=== PATIENT | male | born 1975 | race Caucasian/White ===

== ENCOUNTER 2017-01-12 22:26 | Observation (INO) | payer MEDICAID ==
[2017-01-12] MEDS ORDERED: SODIUM CHLORIDE 0.9% 1,000 ML IV STA (22:43)
[2017-01-12] MEDS ORDERED: RX INFO: IV CONTRAST WAS GIVEN 1 EACH MISC MISCELLANE PRN (22:57)
[2017-01-12] MEDS ORDERED: ACETAMINOPHEN IV (For NPO) 1,000 MG in EMPTY BAG 1 BAG IVPB STA (23:00)
--- NOTE | 2017-01-12 23:03 | ED ---
Abdominal Pain HPI - General Chief Complaint: Abdominal Pain Stated Complaint: lower abdominal pain Time Seen by Provider: 01/12/17 22:43 Source: patient, RN notes reviewed Mode of arrival: ambulatory Limitations: no limitations - History of Present Illness Initial Comments: 41-year-old male presents emergency Department with chief complaint of right lower quadrant abdominal pain. Patient states started earlier this afternoon and has worsened. Patient states that movement does make it worse. Patient states that initially started as mid to lower abdomen but denies localized right lower quadrant. Patient denies any dysuria, hematuria. Patient states she just does not feel well 71 nauseated no vomiting no diarrhea no constipation. Patient had no prior abdominal surgeries. Patient has not taken any Tylenol or Motrin. Patient states that he has a benign past medical history. Patient has felt warm and flushed since being at work. - Related Data Home Medications Medication Instructions Recorded Confirmed D-Methorphan/Acetamin/Doxylamn 30 ml PO Q6H PRN 01/12/17 01/12/17 [Vicks Nyquil Cold & Flu Liquid] Lisinopril [Zestril] 20 mg PO DAILY 01/12/17 01/12/17 Ranitidine HCl 150 mg PO DAILY 01/12/17 01/12/17 Allergies Allergy/AdvReac Type Severity Reaction Status Date / Time No Known Allergies Allergy Verified 01/12/17 23:27 Review of Systems ROS Statement: Those systems with pertinent positive or pertinent negative responses have been documented in the HPI. ROS Other: All systems not noted in ROS Statement are negative. Past Medical History Past Medical History: GERD/Reflux, Hypertension History of Any Multi-Drug Resistant Organisms: None Reported Additional Past Surgical History / Comment(s): wrist surgery, Past Psychological History: No Psychological Hx Reported Smoking Status: Never smoker Past Alcohol Use History: Occasional Past Drug Use History: None Reported General Exam Limitations: no limitations General appearance: alert, in no apparent distress Respiratory exam: Present: normal lung sounds bilaterally. Absent: respiratory distress, wheezes, rales, rhonchi, stridor Cardiovascular Exam: Present: normal rhythm, tachycardia, normal heart sounds. Absent: systolic murmur, diastolic murmur, rubs, gallop, clicks GI/Abdominal exam: Present: soft, tenderness (Moderate right lower quadrant tenderness), normal bowel sounds. Absent: distended, guarding, rebound, rigid Back exam: Absent: CVA tenderness (R), CVA tenderness (L) Neurological exam: Present: alert, oriented X3, CN II-XII intact Skin exam: Present: warm, dry, intact, normal color. Absent: rash Course Vital Signs 01/12/17 01/12/17 01/13/17 22:38 23:01 00:13 Temperature 98.8 F 100.1 F H 98.5 F Pulse Rate 138 H 118 H Respiratory 18 16 Rate Blood Pressure 156/91 134/92 O2 Sat by Pulse 98 99 Oximetry Medical Decision Making - Medical Decision Making Case discussed with Dr. Kurtz. Patient be admitted at this time for acute appendicitis patient be kept nothing by mouth for surgery in the morning - Lab Data Result diagrams: 01/12/17 22:55 01/12/17 22:55 Lab Results 01/12/17 01/12/17 01/12/17 Range/Units 22:55 22:55 23:54 WBC 13.5 H (3.8-10.6) k/uL RBC 5.73 (4.30-5.90) m/uL Hgb 17.1 (13.0-17.5) gm/dL Hct 48.3 (39.0-53.0) % MCV 84.3 (80.0-100.0) fL MCH 29.9 (25.0-35.0) pg MCHC 35.4 (31.0-37.0) g/dL RDW 13.3 (11.5-15.5) % Plt Count 250 (150-450) k/uL Neutrophils % 73 % Lymphocytes % 18 % Monocytes % 5 % Eosinophils % 2 % Basophils % 0 % Neutrophils # 9.9 H (1.3-7.7) k/uL Lymphocytes # 2.4 (1.0-4.8) k/uL Monocytes # 0.6 (0-1.0) k/uL Eosinophils # 0.3 (0-0.7) k/uL Basophils # 0.1 (0-0.2) k/uL Sodium 141 (137-145) mmol/L Potassium 4.0 (3.5-5.1) mmol/L Chloride 102 (98-107) mmol/L Carbon Dioxide 24 (22-30) mmol/L Anion Gap 15 mmol/L BUN 16 (9-20) mg/dL Creatinine 0.93 (0.66-1.25) mg/dL Est GFR (MDRD) Af Amer >60 (>60 ml/min/1.73 sqM) Est GFR (MDRD) Non-Af >60 (>60 ml/min/1.73 sqM) Glucose 124 H (74-99) mg/dL Calcium 9.8 (8.4-10.2) mg/dL Total Bilirubin 1.7 H (0.2-1.3) mg/dL AST 42 (17-59) U/L ALT 74 H (21-72) U/L Alkaline Phosphatase 70 (38-126) U/L Total Protein 8.0 (6.3-8.2) g/dL Albumin 4.7 (3.5-5.0) g/dL Amylase 48 (30-110) U/L Lipase 145 (23-300) U/L Urine Color Light Yellow Urine Appearance Clear (Clear) Urine pH 7.5 (5.0-8.0) Ur Specific [place] 1.050 H (1.001-1.035) Urine Protein Negative (Negative) Urine Glucose (UA) Negative (Negative) Urine Ketones Negative (Negative) Urine Blood Negative (Negative) Urine Nitrite Negative (Negative) Urine Bilirubin Negative (Negative) Urine Urobilinogen 2.0 (<2.0) mg/dL Ur Leukocyte Esterase Negative (Negative) Disposition Clinical Impression: Acute appendicitis Disposition: ADMITTED IP TO THIS [facility] Condition: Good
[2017-01-12 23:09] LABS: Basophils # (A) 0.1 k/uL (0-0.2); Basophils % (A) 0 %; CH 30.4; CHCM 36.2; Eosinophils # (A) 0.3 k/uL (0-0.7); Eosinophils % (A) 2 %; HCT 48.3 % (39.0-53.0); HDW 2.97; HGB 17.1 gm/dL (13.0-17.5); Luc # (Auto) 0.26; Luc % (Auto) 2; Lymphocytes # (A) 2.4 k/uL (1.0-4.8); Lymphocytes % (A) 18 %; MCH 29.9 pg (25.0-35.0); MCHC 35.4 g/dL (31.0-37.0); MCV 84.3 fL (80.0-100.0); Mean Platelet Volume 7.7; Monocytes # (A) 0.6 k/uL (0-1.0); Monocytes % (A) 5 %; Neutrophils # (A) 9.9 k/uL (1.3-7.7); Neutrophils % (A) 73 %; RBC 5.73 m/uL (4.30-5.90); RDW 13.3 % (11.5-15.5); WBC 13.5 k/uL (3.8-10.6); WBC (Perox) 14.07
[2017-01-12 23:22] LABS: ALT 74 U/L (21-72); AST 42 U/L (17-59); Alkaline Phosphatase 70 U/L (38-126); Amylase 48 U/L (30-110); Anion Gap 15 mmol/L; Blood Urea Nitrogen 16 mg/dL (9-20); Calcium 9.8 mg/dL (8.4-10.2); Carbon Dioxide 24 mmol/L (22-30); Chloride 102 mmol/L (98-107); Glucose 124 mg/dL (74-99); Non-African American GFR(MDRD) >60 (>60 ml/min/1.73 sqM); Sodium 141 mmol/L (137-145); Total Bilirubin 1.7 mg/dL (0.2-1.3)
--- NOTE | 2017-01-13 | CT ---
EXAM: CT Abdomen and Pelvis With Intravenous Contrast. CLINICAL HISTORY: Reason: RLQ pain TECHNIQUE: Axial computed tomography images of the abdomen and pelvis with intravenous contrast. CTDI is 11 mGy and DLP is 974 mGy-cm COMPARISON: No relevant prior studies available. FINDINGS: The lung bases are clear. The liver, biliary tree, pancreas, spleen, kidneys, and adrenal glands are within normal limits. There is no bowel obstruction or perforation. The appendix is mildly dilated, 8 mm in maximal diameter. There is suggestion of adjacent edema (series 3, image 65). In this clinical setting, would suspect early changes of appendicitis. No abscess or free air. No fracture. IMPRESSION: Findings suspicious for early appendicitis. No free air or abscess.
[2017-01-13] MEDS ORDERED: PIPERACILLIN-TAZOBACTAM 3.375 GM in DEXTROSE/WATER 1 50ML.BAG IVPB STA (00:05)
[2017-01-13 00:16] LABS: Appearance,Urine Clear (Clear); Bilirubin,Urine Negative (Negative); Glucose,Urine (UA) Negative (Negative); Ketones,Urine Negative (Negative); Leukocyte Esterase,Urine Negative (Negative); Nitrite,Urine Negative (Negative); PH, Urine 7.5 (5.0-8.0); Protein,Urine Negative (Negative); UA Billing (MACRO vs. MICRO) CHEM
[2017-01-13] MEDS ORDERED: NALOXONE 0.4 MG/ML 1 ML VIAL IV PRN (00:53)
[2017-01-13] MEDS ORDERED: ONDANSETRON 4 MG/2 ML VIAL IVP PRN (00:53)
[2017-01-13] MEDS ORDERED: ACETAMINOPHEN IV (For NPO) 1,000 MG in EMPTY BAG 1 BAG IVPB PRN (00:55)
[2017-01-13] MEDS: SODIUM CHLORIDE 0.9% 1,000 ML IV SCH ×2 (00:58→17:01)
[2017-01-13 01:59] VITALS: BMI 28.0
[2017-01-13] MEDS ORDERED: ACETAMINOPHEN IV (For NPO) 1,000 MG in EMPTY BAG 1 BAG IVPB SCH (06:00)
[2017-01-13] MEDS ORDERED: HEPARIN SODIUM,PORCINE 5,000 UNIT/ML 1 ML VIAL SQ ONE (07:44)
--- NOTE | 2017-01-13 10:14 | P.GSHP ---
History of Present Illness H&P Date: 01/13/17 CHIEF COMPLAINT: Right lower quadrant abdominal pain with appendicitis over 1 day. HISTORY OF PRESENT ILLNESS: The patient is a previously healthy 41-year-old male who presents with 1.5 day history of periumbilical with right lower quadrant abdominal pain that started last night. No reports diarrhea but he had anorexia. No reports of prior abdominal pain. He states the intensity of the pain is moderate to severe. He presented with over 10,[address] abdomen and pelvis consistent with dilated appendix suspicious for appendicitis hence admission. PAST MEDICAL HISTORY: See list. PAST SURGICAL HISTORY: See list. CURRENT MEDICATIONS: See list. ALLERGIES: None. SOCIAL HISTORY: No illicit drug use. FAMILY HISTORY: Denies Crohns disease and ulcerative colitis. REVIEW OF ORGAN SYSTEMS: CONSTITUTIONAL: Denies any fever or chills. Denies recent weight loss. HEENT: Denies any trouble with vision, hearing or nosebleeds. No difficulty swallowing. LYMPHATIC: The patient denies any lumps and bumps around the neck. ENDOCRINE: Denies any thyroid disorders. Denies any blood sugar glucose intolerance. RESPIRATORY: Denies shortness of breath including chronic cough. CARDIOVASCULAR: Denies history of chest pain with exertion. GASTROINTESTINAL: Has GERD. GENITOURINARY: Denies any blood in urine or increased urinary frequency. MUSCULOSKELETAL: Denies current joint arthritis. NEUROLOGIC: Denies any numbness or tingling along the distal extremities. No seizure disorders or headaches. PSYCHIATRIC: Denies any depression or suicidal ideation. HEMATOLOGIC: Denies any abnormal bleeding or bruising. GENERAL MEDICAL CARE: The patient sees primary care physician regularly. PHYSICAL EXAMINATION: Vital signs: Vital Signs Temp 98.0 F 01/13/17 07:43 Pulse 83 01/13/17 07:43 Resp 16 01/13/17 07:43 BP 122/74 01/13/17 07:43 Pulse Ox 98 01/13/17 07:43 Intake & Output 01/12/17 01/13/17 01/13/17 18:59 06:59 18:59 Intake Total 465 Balance 465 Weight 86.183 kg Intake: Intake, IV Titration 465 Amount Piperacillin-Tazobactam 3 50 .375 gm In Dextrose/Water 1 50ml.bag @ 12.5 mls/hr IVPB ONCE STA Rx#: [id number] Sodium Chloride 0.9% 1, 415 000 ml @ 75 mls/hr IV . [id number] [facility] Rx#:[id number] Other: Voiding Method Toilet GENERAL: Well developed and in no acute distress. Pleasant. HEENT: No sclera icterus. Extraocular movements grossly intact. Moist buccal mucosa. Head is atraumatic, normocephalic. Hears conversational speech. No nasal drainage. NECK: Supple without lymphadenopathy. No JV distention. CHEST: Non-labored respirations and equal bilateral excursions. CARDIOVASCULAR: Regular rate and rhythm. Palpable 2+ radial pulses. ABDOMEN: Soft, tender at the right lower quadrant. No peritonitis. MUSCULOSKELETAL: No clubbing, cyanosis or edema. NEUROLOGIC: No focal or lateralizing signs. PSYCH: Appropriate affect. Alert and oriented to person, place and time. STUDIES: CT of the abdomen and pelvis reviewed with findings consistent with appendicitis. ASSESSMENT: 1. Right lower quadrant pain. 2. Appendicitis. 3. Leukocytosis. PLAN: 1. I have discussed benefits and risks of laparoscopic appendectomy possible open. 2. Off work restrictions and recovery anticipated for 1 to 2 weeks. 3. Antibiotics, pre-op. 4. DVT prophylaxis with heparin. 5. GI prophylaxis. 6. Thank you very much for allowing me to participate in the care of your patient. Past Medical History Past Medical History: GERD/Reflux, Hyperlipidemia, Hypertension, Sleep Apnea/ CPAP/BIPAP Additional Past Medical History / Comment(s): No C=-pap, Insomnia History of Any Multi-Drug Resistant Organisms: None Reported Additional Past Surgical History / Comment(s): wrist surgery, Past Anesthesia/Blood Transfusion Reactions: No Reported Reaction Past Psychological History: No Psychological Hx Reported Smoking Status: Never smoker Past Alcohol Use History: Occasional Past Drug Use History: None Reported - Past Family History Mother Family Medical History: Chest Pain / Angina, Hypertension, Myocardial Infarction (CT) Father Family Medical History: Deep Vein Thrombosis (DVT) Medications and Allergies Home Medications Medication Instructions Recorded Confirmed Type D-Methorphan/Acetamin/Doxylamn 30 ml PO Q6H PRN 01/12/17 01/12/17 History [Vicks Nyquil Cold & Flu Liquid] Lisinopril [Zestril] 20 mg PO DAILY 01/12/17 01/12/17 History Ranitidine HCl 150 mg PO DAILY 01/12/17 01/12/17 History Allergies Allergy/AdvReac Type Severity Reaction Status Date / Time No Known Allergies Allergy Verified 01/12/17 23:27 Surgical - Exam Vital Signs Temp Pulse Resp BP Pulse Ox 98.8 F 138 H 18 156/91 98 01/12/17 22:38 01/12/17 22:38 01/12/17 22:38 01/12/17 22:38 01/12/17 22:38 Results - Labs 01/12/17 22:55 01/12/17 22:55
[2017-01-13] MEDS ORDERED: IV FLUID CONTINUATION 1,000 ML IV ONE (13:42)
[2017-01-13] MEDS ORDERED: DEXAMETHASONE SOD PHOS (MDV) 100 MG/10 ML VIAL IV ONE (14:01)
[2017-01-13] MEDS ORDERED: MIDAZOLAM 2 MG/2 ML VIAL ONE (14:36)
[2017-01-13] MEDS ORDERED: GLYCOPYRROLATE 0.2 MG/ML 2 ML VIAL ONE (14:36)
[2017-01-13] MEDS ORDERED: ROCURONIUM BROMIDE 10 MG/ML 10 ML VIAL IV ONE (14:36)
[2017-01-13] MEDS ORDERED: fentaNYL (PF) 50 MCG/ML 2 ML AMP ONE (14:36)
[2017-01-13] MEDS ORDERED: PROPOFOL 10 MG/ML 20 ML VIAL IV ONE (14:36)
[2017-01-13] MEDS ORDERED: NEOSTIGMINE 1 MG/ML 10 ML VIAL ONE (14:36)
[2017-01-13] MEDS ORDERED: LACTATED RINGERS 1,000 ML IV ONE (14:58)
[2017-01-13] MEDS ORDERED: BUPIVACAIN-EPI 0.25%-1:200,000 30 ML VIAL SQ ONE (14:58)
[2017-01-13] MEDS ORDERED: ACETAMINOPHEN IV (For NPO) 1,000 MG in EMPTY BAG 1 BAG IVPB ONE (15:35)
--- NOTE | 2017-01-13 15:35 | P.OP ---
Date of Procedure: 01/13/17 Description of Procedure: SURGEON: LIVE CARDENAS MD GLOBAL LOGISTICS ANALYST: None. PREOPERATIVE DIAGNOSES: 1. Right lower quadrant abdominal pain. 2. Acute appendicitis. 3. Leukocytosis. 4. Gastroesophageal reflux disease. POSTOPERATIVE DIAGNOSES: 1. Right lower quadrant abdominal pain. 2. Acute appendicitis. 3. Leukocytosis. 4. Gastroesophageal reflux disease. PROCEDURES PERFORMED: 1. Diagnostic laparoscopy. 2. Laparoscopic appendectomy. ANESTHESIA: General with 30 mL 0.25% Marcaine with epinephrine. ESTIMATED BLOOD LOSS: 5 mL. SPECIMENS REMOVED: Appendix. COMPLICATIONS: None. OPERATIVE FINDINGS: 1. Acute appendicitis with dilation of the appendix without perforation. 2. Unremarkable small bowel and terminal ileum. 3. Liver unremarkable. 4. The colon was unremarkable 5. No evidence of inguinal hernia. INDICATIONS: The patient is a 41-year-old male who presents with over 24-hour history of right lower quadrant abdominal pain. He reported nausea, including anorexia. CT of the abdomen and pelvis was obtained demonstrating findings consistent with acute appendicitis. Benefits and risks, including possibility of open technique were described at length. Informed consent was obtained. DESCRIPTION OR PROCEDURE: Patient was brought to the operating room, laid in supine position. After general induction, the abdomen was prepped and draped in standard sterile fashion. Prior to incision, a timeout protocol was confirmed with surgical team regarding patient's name including procedure to be performed. Preoperative medications were given intraoperatively. Additionally, bilateral SCDs including heparin 5000 units was administered. A transverse infraumbilical incision was made after localizing the skin with anesthetic. A 0 degree 12 mm laparoscopic trocar entry was performed and entered into the peritoneal cavity. The abdomen was insufflated to 15 mmHg of pressure, which he tolerated well. Diagnostic laparoscopy demonstrated no injury to bowel, viscera or mesentery. A 5 mm port was placed at the left upper quadrant all under direct visualization. Two separate 5-mm trocars were placed one along the suprapubic area and another along the right lower quadrant. The patient was placed in Trendelenburg position with the right side up. A systematic view within the abdominal cavity was started with the small bowel which was unremarkable. The gallbladder was unremarkable. The base of the cecum was without inflammation. The entire appendix was dilated consistent with acute appendicitis. A 60 mm Endo UCHE echelon stapler was fired across using a mukherjee vascular load. Upon careful inspection, a small appendiceal stump was identified and also resected. Mild arterial bleed was encountered and controlled with irrigation. Irrigation of 100 mL was used into the abdomen and aspirated. The specimen was removed from the abdominal cavity with a Endo Catch bag through the 12 mm trocar. All instruments and pneumoperitoneum were evacuated from the abdominal cavity. The fascial defect was less than 8 mm. A total of 30 mL 0.25% Marcaine with epinephrine was infiltrated in all wounds for postop analgesia. Dermabond was applied to the skin after reapproximating the incisions with 4-0 Monocryl as described. At the end of the procedure, needle, sponge, and instrument count was verified correct by coroner forensic technician. The patient had tolerated the procedure well, was taken to the postanesthesia care unit in stable condition.
[2017-01-13 15:49] VITALS: RESP 16
[2017-01-13] MEDS: KETOROLAC 30 MG/ML 1 ML VIAL IVP SCH (15:56)
[2017-01-13] MEDS: MORPHINE SULFATE 4 MG/ML SYRINGE IV PRN ×3 (15:57→19:45)
[2017-01-13] MEDS: HYDROmorphone 1 MG/ML 1 ML SYRINGE IVP ONE ×2 (16:20→16:32)
--- NOTE | 2017-01-13 20:23 | P.DS ---
Providers Date of admission: 01/13/17 00:53 Expected date of discharge: 01/14/17 Attending physician: Yomaira Ellsworth Primary care physician: Moi Portillo - Discharge Diagnosis(es) (1) Hypertension Current Visit: Yes Status: Chronic (2) Acid reflux Current Visit: Yes Status: Chronic (3) Acute appendicitis Current Visit: Yes Status: Acute (4) Leukocytosis Current Visit: Yes Status: Acute (5) Right lower quadrant abdominal pain Current Visit: Yes Status: Acute Hospital Course: The patient presented with history of right lower quadrant abdominal pain of approximately [address] of the abdomen and pelvis consistent with the acute appendicitis. He was taken to the operating room and underwent a laparoscopic appendectomy. Prior to discharge, his pain was well-controlled. He is tolerating diet. Discharge instructions were reviewed with him and his family. Pertinent Studies: CT of the abdomen and pelvis consistent with acute appendicitis. Procedures: Laparoscopic appendectomy Patient Condition at Discharge: Good Plan - Discharge Summary New Discharge Prescriptions: Hydrocodone/Acetaminophen [[place] 5-325] 1 - 2 each PO Q6HR PRN #40 tab PRN Reason: Pain Discharge Medication List D-Methorphan/Acetamin/Doxylamn [Vicks Nyquil Cold & Flu Liquid] 30 ml PO Q6H PRN 01/12/17 [History] Lisinopril [Zestril] 20 mg PO DAILY 01/12/17 [History] Ranitidine HCl 150 mg PO DAILY 01/12/17 [History] Hydrocodone/Acetaminophen [[place] 5-325] 1 - 2 each PO Q6HR PRN #40 tab 01/13/17 [Rx] Follow up Appointment(s)/Referral(s): Moi Portillo MD [Primary Care Provider] - 1-2 days Yomaira Ellsworth MD [STAFF PHYSICIAN] - 01/31/17 Patient Instructions/Handouts: Laparoscopic Appendectomy (DC) Activity/Diet/Wound Care/Special Instructions: No lifting over 4 pounds in 4 weeks. While traveling, please use wheelchair during flights. May shower. No bath tub soaks. Discharge Disposition: HOME SELF-CARE
[2017-01-13] MEDS: HYDROcodone/APAP 5-325MG 1 EACH TAB PO PRN (22:30)
[2017-01-13] MEDS: ceFAZolin 2 GM in SODIUM CHLORIDE 0.9% 100 ML IVPB SCH (22:31)
[2017-01-14] MEDS: KETOROLAC 30 MG/ML 1 ML VIAL IVP SCH ×2 (01:47→04:26)
[2017-01-14] MEDS: SODIUM CHLORIDE 0.9% 1,000 ML IV SCH (04:25)
[2017-01-14] MEDS: ceFAZolin 2 GM in SODIUM CHLORIDE 0.9% 100 ML IVPB SCH (05:27)
[2017-01-14] MEDS: HYDROcodone/APAP 5-325MG 1 EACH TAB PO PRN (05:27)
[2017-01-14] MEDS ORDERED: LISINOPRIL 20 MG TAB PO SCH (09:00)
[2017-01-14 09:16] VITALS: BP 134/78; PULSE 107; TEMP 97.1
== END 2017-01-14 10:06 | disposition home or self-care (01) ==
LOC: EC 22:26 → 3SUR 01-13 00:53
PROVIDERS: ADMIT Surgery Plastic and Reconstructive Surgery; ATTEND Surgery Plastic and Reconstructive Surgery
DX: K35.80 Unspecified acute appendicitis (principal); I10 Essential (primary) hypertension; K21.9 Gastro-esophageal reflux disease without esophagitis; Z79.899 Other long term (current) drug therapy
CPT/HCPCS: 36415; 93005; 88304; 80053; 82150; 83690; 85025; 81003; 74177; 44970; 96365; 96361; 96375; 99285; G0378 ×2; J2250; J2270; J1644; J2710; J0690 ×2; J2405; J3010; J1885; J1170; J2543; Q9967; J1100; J0131 ×2; J2704